=== PATIENT | male | born 1955 | race Caucasian/White ===

== ENCOUNTER → 2019-10-31 | Outpatient (CLI) | payer BC ==
--- NOTE | 2019-10-31 17:30 | RAD ---
EXAM: XR Chest, 2 Views CLINICAL HISTORY: COUGH TECHNIQUE: Frontal and lateral views of the chest. COMPARISON: No relevant prior studies available. FINDINGS: Limitations: None. Lungs: Postoperative changes right lung with minimal midlung field scarring. The lungs are hyperinflated. No consolidation. Pleural space: Unremarkable. No pneumothorax. Heart: Unremarkable. No cardiomegaly. Mediastinum: Unremarkable. Bones/joints: Unremarkable. IMPRESSION: No acute findings in the chest. Electronically signed by: Mary Han MD 10/31/2019 5:29 PM METALLURGICAL TECHNICIAN
== END ==
LOC: LAB.O 16:35
PROVIDERS: ATTEND Physician Assistant
DX: R05 Cough (principal)

== ENCOUNTER → 2019-11-28 | Outpatient (CLI) | payer BC | LOC: GMA MATASK 10:43 | PROVIDERS: ATTEND Family Medicine | DX: I10 Essential (primary) hypertension (principal); Z12.5 Encounter for screening for malignant neoplasm of prostate ==

== ENCOUNTER → 2020-09-15 | Outpatient (CLI) | payer BC | LOC: GMA MATASK 14:32 | PROVIDERS: ATTEND Family Medicine | DX: M25.559 Pain in unspecified hip (principal); I10 Essential (primary) hypertension; R53.83 Other fatigue ==